=== PATIENT | male | born 1995 | race American Indian/Alaskan Native ===

== ENCOUNTER 2016-12-15 22:05 | Emergency (ER) | payer BC ==
[2016-12-15 22:45] LABS: Basophils % (Auto) 1.9 % (0.0-1.8); Eosinophils % (Auto) 3.8 % (0.0-4.3); Hematocrit 34.3 % (35.5-45.6); Hemoglobin 10.9 gm/dl (11.8-15.2); Mean Corpuscular HGB Conc 32 % (32-34); Mean Corpuscular Volume 79 fl (84-94); Platelet Count 377 K/mm3 (140-440); Red Blood Count 4.35 M/mm3 (3.65-5.03); Red Cell Distribution Width 15.1 % (13.2-15.2); White Blood Count 10.7 K/mm3 (4.5-11.0)
[2016-12-15 22:48] LABS: Mean Corpuscular Hemoglobin 25 pg (28-32)
[2016-12-15 23:06] LABS: Anion Gap 19 mmol/L; Blood Urea Nitrogen 9 mg/dL (9-20); Carbon Dioxide 25 mmol/L (22-30); Chloride 98.3 mmol/L (98-107); Glucose 124 mg/dL (75-100); Sodium 138 mmol/L (137-145)
[2016-12-16 06:43] LABS: Urine Drugs of Abuse Note Disclamer
--- NOTE | 2016-12-16 06:55 | Emergency Department Report ---
HPI - General Chief Complaint: Psych Time Seen by Provider: 12/16/16 06:14 - HPI HPI: This is a 21-year-old Afro-L[place] male who presents the emergency department from home via police department. The patient says that he got into a verbal altercation/argument with his parents and then called the police. He admitted to them and through triage that he sometimes will feel suicidal or homicidal, when he gets angry, which he was last night. He denies any diagnosed medical or psychiatric history and is not on any medications. He denies any auditory or visual hallucinations. He did not take anything for his symptoms prior to presentation. He has a tobacco smoker but denies any illicit drug use or any current alcohol use. The patient says that these symptoms have been going on for the past few months and that he is been having some depression over the fact that he does not get to see his daughter very often as he says "I do not make enough." ED Past Medical Hx - Past Medical History Previous Medical History?: Yes Additional medical history: ADHD - Surgical History Past Surgical History?: No - Social History Smoking Status: Current Every Day Smoker Substance Use Type: Alcohol, Cocaine, Marijuana, Other ED Review of Systems ROS: Stated complaint: MH EVAL Other details as noted in HPI Comment: All other systems reviewed and negative Constitutional: denies: chills, fever Eyes: denies: eye pain, eye discharge, vision change ENT: denies: ear pain, throat pain Respiratory: denies: cough, shortness of breath, wheezing Cardiovascular: denies: chest pain, palpitations Genitourinary: denies: urgency, dysuria Musculoskeletal: denies: back pain, joint swelling, arthralgia Skin: denies: rash, lesions Neurological: denies: headache, weakness, paresthesias Psychiatric: depression, homicidal thoughts, suicidal thoughts. denies: auditory hallucinations, visual hallucinations Physical Exam - Physical Exam Vital Signs: Vital Signs 12/15/16 12/15/16 12/16/16 22:21 22:27 02:03 Temperature 99 F 99.0 F 98.9 F Pulse Rate 90 90 74 Respiratory 20 20 18 Rate Blood Pressure 130/80 127/78 Blood Pressure 130/80 [Right] O2 Sat by Pulse 99 99 100 Oximetry 12/16/16 12/16/16 06:12 06:17 Temperature 98.3 F Pulse Rate 62 Respiratory 16 16 Rate Blood Pressure Blood Pressure 129/73 [Right] O2 Sat by Pulse 100 100 Oximetry Physical Exam: GENERAL: The patient is well-developed well-nourished. HEENT: Normocephalic. Atraumatic. Extraocular motions are intact. Patient has moist mucous membranes. Pupils equal reactive to light bilaterally. NECK: Supple. Trachea is midline. CHEST/LUNGS: Clear to auscultation. There is no respiratory distress noted. HEART/CARDIOVASCULAR: Regular. There is no tachycardia. There is no gallop rub or murmur. ABDOMEN: Abdomen is soft, nontender. Patient has normal bowel sounds. There is no abdominal distention. SKIN: There is no rash. There is no edema. There is no diaphoresis. NEURO: The patient is awake, alert, and oriented. The patient is cooperative. The patient has no focal neurologic deficits. The patient has normal speech. MUSCULOSKELETAL: There is no tenderness or deformity. There is no limitation range of motion. There is no evidence of acute injury. PSYCH: Flat affect. ED Course Vital Signs 12/15/16 12/15/16 12/16/16 22:21 22:27 02:03 Temperature 99 F 99.0 F 98.9 F Pulse Rate 90 90 74 Respiratory 20 20 18 Rate Blood Pressure 130/80 127/78 Blood Pressure 130/80 [Right] O2 Sat by Pulse 99 99 100 Oximetry 12/16/16 12/16/16 06:12 06:17 Temperature 98.3 F Pulse Rate 62 Respiratory 16 16 Rate Blood Pressure Blood Pressure 129/73 [Right] O2 Sat by Pulse 100 100 Oximetry ED Medical Decision Making - Lab Data Result diagrams: 12/15/16 22:34 12/15/16 22:34 - Medical Decision Making 21-year-old male presents via PD with complaint of intermittent suicidal and homicidal ideations that occurs when he is angry. He was angry this evening after a argument with his parents. He has some anger intermittently due to the fact that he does not get to see his daughter. For these reasons, since we cannot anticipate when the patient might become angry, the patient is been made a 1013. His labs are mostly unremarkable. Urine drug screen is only positive for marijuana. Negative blood alcohol level. No signs of infection. Vital signs stable throughout his ED course. Patient appears medically cleared for psychiatric placement. - Differential Diagnosis depression, bipolar disorder, mood disorder, schizophrenia Critical Care Time: No Critical care attestation.: If time is entered above; I have spent that time in minutes in the direct care of this critically ill patient, excluding procedure time. ED Disposition Clinical Impression: Suicidal ideations, Homicidal ideations Depression Qualifiers: Depression Type: unspecified Qualified Code(s): F32.9 - Major depressive disorder, single episode, unspecified Disposition: DC/TX PSY HOSP/PSY UNIT Is pt being admited?: No Condition: Stable Referrals: PRIMARY CARE, [Primary Care Provider] - 3-5 Days Time of Disposition: 07:27
[2016-12-16 07:18] LABS: Bilirubin,Urine NEG (Negative); Blood,Urine NEG (Negative); Ketones,Urine NEG (Negative); Leukocyte Esterase,Urine MOD (Negative); Mucus,Urine 1+ /HPF; Nitrite,Urine NEG (Negative); Protein,Urine <15 mg/dL mg/dL (Negative); Urobilinogen,Urine < 2.0 mg/dL (<2.0)
[2016-12-16 09:50] VITALS: BP 112/78
--- NOTE | 2016-12-16 11:00 | Consultation ---
History of Present Illness - Reason for Consult Consult date: 12/16/16 Reason for consult: Mental Health Evaluation Requesting physician: FE HAYES - Chief Complaint Chief complaint: "I need some help" - History of Present Psychiatric Illness This is a 21-year-old Afro-Jamaican male who presents the emergency department from home via police department. The patient says that he got into a verbal altercation/argument with his parents and then called the police. Today patient is calm and cooperative during assessment. He stated that he been struggling with depression symptoms (hopeless, poor appetite, and helplessness) for a couple months. He stated that when he gets upset, he feels like he is about to loose it "mentally." He stated that his sibling were arguing and he tried to break it up. He stated his stepdad intervened and started yelling at him. He stated that he felt angry and was about to loose control, so he called the police. He stated that these feelings that he have are "violent with suicidal thoughts" He stated if he would to kill himself he would "overdose on pills or drink alcohol to ." Patient stated that he have taken opiates and consume alcohol in the past to cope with his depression. He stated that he is currently having suicidal ideations and thoughts. Also, the patient is having child custody issues with the mother of his child. He denies HI's and AVH's, with erratic sleep. Patient stated that he used to be "ambitious" and had the "spark " to be successful in life, but no longer have that drive at this time. He denies alcohol consumption, but he did admit to using marijuana. Positive for marijuana. Medications and Allergies Allergies Allergy/AdvReac Type Severity Reaction Status Date / Time grapefruit Allergy Unknown Verified 12/15/16 22:27 Past psychiatric history - Past Medical History Past Medical History: No medical history Past Surgical History: No surgical history - past Psychiatric treatment and history psychiatric treatment history: Saw a psychiatrist as a child for possible ADHD. He think his mother has depression. - Social History Social history: lives with family ([employer] graduate, unemployed) Mental Status Exam - Vital signs Last Vital Signs Temp 98.7 F 12/16/16 09:49 Pulse 85 12/16/16 09:49 Resp 20 12/16/16 09:49 BP 112/78 12/16/16 09:49 Pulse Ox 99 12/16/16 09:49 - Exam Narrative exam: ROS (+) depression, (-) psychosis MSE: Appearance: calm, cooperative Behavior: poo eye contact Speech: regular rate and tone Mood: "feel down" Affect: flat Thought Process: linear Thought Content: denies HI's and AVH's Motor Activity: ambulatory Cognition: a/ox 3 Insight: fair Judgment: fair Results Result Diagrams: 12/15/16 22:34 12/15/16 22:34 Abnormal lab results 12/15/16 12/15/16 12/16/16 Range/Units 22:34 22:34 06:07 Hgb 10.9 L (11.8-15.2) gm/dl Hct 34.3 L (35.5-45.6) % MCV 79 L (84-94) fl MCH 25 L (28-32) pg Lymph % (Auto) 5.0 L (13.4-35.0) % [place] % (Auto) 10.1 H (0.0-7.3) % Baso % (Auto) 1.9 H (0.0-1.8) % Lymph # 0.5 L (1.2-5.4) K/mm3 [place] # 1.1 H (0.0-0.8) K/mm3 Baso # 0.2 H (0.0-0.1) K/mm3 Seg Neutrophils % 79.2 H (40.0-70.0) % Seg Neutrophils # 8.5 H (1.8-7.7) K/mm3 Glucose 124 H (75-100) mg/dL Urine WBC (Auto) 40.0 H (0.0-6.0) /HPF All other labs normal. Assessment and Plan Assessment and plan: Impression: MDD severe type/Cannabis Use DO. This is a 21-year-old Afro- [place] male who presents the emergency department from home via police department. The patient says that he got into a verbal altercation/argument with his parents and then called the police. Today patient is calm and cooperative during assessment. He stated that he been struggling with depression symptoms (hopeless, poor appetite, and helplessness) for months. He stated that when he gets upset, he feels like he is about to loose it "mentally. " He stated that his siblings were arguing and he tried to break it up. He stated that his stepdad intervened and started yelling at him. He stated that he felt angry and was about to loose control, so he called the police. Patient is willing to receive the necessary help for stabilization. Positive for marijuana. DD: R/O Bipolar, Adjustment DO Recommendation/Plan: Continue 1013 with placement to [facility].
== END 2016-12-16 18:29 ==
LOC: EEVIPCON 22:05 → ED 22:05
DX: F32.9 Major depressive disorder, single episode, unspecified (principal); R45.851 Suicidal ideations; R45.850 Homicidal ideations; F17.200 Nicotine dependence, unspecified, uncomplicated; F12.10 Cannabis abuse, uncomplicated; F14.10 Cocaine abuse, uncomplicated
CPT/HCPCS: 36415; 80048; 80307; 81001; 85025; 99285; G0480; 80320

== ENCOUNTER 2017-06-15 19:33 | Emergency (ER) | payer BC ==
[2017-06-15 22:55] LABS: Basophils % (Auto) 2.5 % (0.0-1.8); Hematocrit 42.1 % (35.5-45.6); Hemoglobin 13.7 gm/dl (11.8-15.2); Mean Corpuscular HGB Conc 33 % (32-34); Mean Corpuscular Hemoglobin 27 pg (28-32); Mean Corpuscular Volume 84 fl (84-94); Platelet Count 265 K/mm3 (140-440); Red Cell Distribution Width 14.2 % (13.2-15.2)
[2017-06-15 23:12] LABS: Alanine Aminotransferase 22 units/L (7-56); Albumin 4.1 g/dL (3.9-5); Albumin/Globulin Ratio 1.2 %; Alkaline Phosphatase 84 units/L (35-129); Anion Gap 18 mmol/L; BUN/Creatinine Ratio 18; Blood Urea Nitrogen 14 mg/dL (9-20); Calcium 9.4 mg/dL (8.4-10.2); Carbon Dioxide 25 mmol/L (22-30); Chloride 99.2 mmol/L (98-107); Glucose 86 mg/dL (75-100); Lipase 19 units/L (13-60); Potassium 4.1 mmol/L (3.6-5.0); Sodium 138 mmol/L (137-145); Total Protein 7.4 g/dL (6.3-8.2)
[2017-06-16 00:06] VITALS: BP 139/77
[2017-06-16 00:29] LABS: Bilirubin,Urine Negative (Negative); Blood,Urine Negative (Negative); Ketones,Urine Negative (Negative); Leukocyte Esterase,Urine Negative (Negative); Nitrite,Urine Negative (Negative); Protein,Urine <15 mg/dL mg/dL (Negative); Urobilinogen,Urine < 2.0 mg/dL (<2.0)
[2017-06-16 00:40] LABS: Mucus,Urine 1+ /HPF
[2017-06-16] MEDS ORDERED: BENTYL PO ONE (06:25)
[2017-06-16] MEDS ORDERED: PHENERGAN PO ONE (06:27)
--- NOTE | 2017-06-16 06:35 | Emergency Department Report ---
ED General Adult HPI - General Chief complaint: Abdominal Pain Stated complaint: ABD PAIN Time Seen by Provider: 06/16/17 06:24 Source: patient Mode of arrival: Ambulatory Limitations: No Limitations - History of Present Illness Initial comments: Patient is a 22-year-old male past medical history of abdominal pain who presents with lower abdominal pain and nausea. Patient states that symptoms have been going on for the last couple months. Patient states that he initially was seen at [facility] and diagnosed with irritable bowel syndrome he states that the bone pain as a 4 out of 10 located in the epigastric area and in the lower quadrant area cramping is intermittent nothing makes it better or worse. He's also had some nausea and vomiting with this abdominal pain has been nonbloody and nonbilious. Patient also states that he' s had some diarrhea but no blood in stool. Patient has no significant family medical history Severity scale (0 -10): 0 - Related Data Previous Rx's Medication Instructions Recorded Last Taken Type Promethazine [Phenergan TAB] 25 mg PO Q6HR PRN #30 tab 06/16/17 Unknown Rx Allergies Allergy/AdvReac Type Severity Reaction Status Date / Time grapefruit Allergy Swelling Verified 06/15/17 22:09 ED Review of Systems ROS: Stated complaint: ABD PAIN Other details as noted in HPI Constitutional: denies: chills, fever Eyes: denies: eye pain, eye discharge, vision change ENT: denies: ear pain, throat pain Respiratory: denies: cough, shortness of breath, wheezing Cardiovascular: denies: chest pain, palpitations Endocrine: no symptoms reported Gastrointestinal: abdominal pain, nausea. denies: diarrhea Genitourinary: denies: urgency, dysuria Musculoskeletal: denies: back pain, joint swelling, arthralgia Skin: denies: rash, lesions Neurological: denies: headache, weakness, paresthesias Psychiatric: denies: anxiety, depression Hematological/Lymphatic: denies: easy bleeding, easy bruising ED Past Medical Hx - Past Medical History Previous Medical History?: Yes Additional medical history: ADHD, anemia - Surgical History Past Surgical History?: No - Social History Smoking Status: Never Smoker - Medications Home Medications: Home Medications Medication Instructions Recorded Confirmed Last Taken Type Promethazine [Phenergan TAB] 25 mg PO Q6HR PRN #30 tab 06/16/17 Unknown Rx ED Physical Exam - General Limitations: No Limitations General appearance: alert, in no apparent distress - Head Head exam: Present: atraumatic, normocephalic - Eye Eye exam: Present: normal appearance - ENT ENT exam: Present: mucous membranes moist - Neck Neck exam: Present: normal inspection - Respiratory Respiratory exam: Present: normal lung sounds bilaterally. Absent: respiratory distress - Cardiovascular Cardiovascular Exam: Present: regular rate, normal rhythm. Absent: systolic murmur, diastolic murmur, rubs, gallop - GI/Abdominal GI/Abdominal exam: Present: soft, normal bowel sounds - Rectal Rectal exam: Present: deferred - Extremities Exam Extremities exam: Present: normal inspection - Back Exam Back exam: Present: normal inspection - Neurological Exam Neurological exam: Present: alert, oriented X3 - Psychiatric Psychiatric exam: Present: normal affect, normal mood - Skin Skin exam: Present: warm, dry, intact, normal color. Absent: rash ED Course Vital Signs 06/15/17 06/16/17 06/16/17 22:06 00:05 06:18 Temperature 99.5 F 99.8 F H Pulse Rate 20 L 71 Respiratory 18 18 Rate Blood Pressure 137/72 139/77 O2 Sat by Pulse 99 100 97 Oximetry ED Medical Decision Making - Lab Data Result diagrams: 06/15/17 22:16 06/15/17 22:16 Labs 06/15/17 06/15/17 06/15/17 22:16 22:16 23:23 WBC 5.0 RBC 5.00 Hgb 13.7 Hct 42.1 MCV 84 MCH 27 L MCHC 33 RDW 14.2 Plt Count 265 Lymph % (Auto) 22.4 [place] % (Auto) 11.5 H Eos % (Auto) 8.0 H Baso % (Auto) 2.5 H Lymph # 1.1 L [place] # 0.6 Eos # 0.4 Baso # 0.1 Seg Neutrophils % 55.6 Seg Neutrophils # 2.8 Sodium 138 Potassium 4.1 Chloride 99.2 Carbon Dioxide 25 Anion Gap 18 BUN 14 Creatinine 0.8 Estimated GFR > 60 BUN/Creatinine Ratio 18 Glucose 86 Calcium 9.4 Total Bilirubin 0.80 AST 16 ALT 22 Alkaline Phosphatase 84 Total Protein 7.4 Albumin 4.1 Albumin/Globulin Ratio 1.2 Lipase 19 Urine Color Yellow Urine Turbidity Hazy Urine pH 5.0 Ur Specific [place] 1.035 H Urine Protein <15 mg/dl Urine Glucose (UA) Negative Urine Ketones Negative Urine Blood Negative Urine Nitrite Negative Urine Bilirubin Negative Urine Urobilinogen < 2.0 Ur Leukocyte Esterase Negative Urine WBC (Auto) 8.0 H Urine RBC (Auto) 4.0 Calcium Oxalate Crystal 1+ Urine Mucus 1+ - Medical Decision Making Chief medical diagnosis: Irritable bowel syndrome Differential diagnosis: Gastritis, peptic ulcer, partial abnormality CBC, CMP, oral Bentyl, oral phenegran, and by mouth trial. Patient's laboratory findings are unremarkable patient's is feeling better after oral medication I'll send patient home will follow-up with his primary care provider patient agrees with plan. Additional verbal discharge instructions were given. Patient was sent home with [facility] Critical care attestation.: If time is entered above; I have spent that time in minutes in the direct care of this critically ill patient, excluding procedure time. ED Disposition Clinical Impression: Abdominal pain in male Nausea and vomiting Qualifiers: Vomiting type: unspecified Vomiting Intractability: unspecified Qualified Code( s): R11.2 - Nausea with vomiting, unspecified Disposition: DC-01 TO HOME OR SELFCARE Is pt being admited?: No Does the pt Need Aspirin: No Condition: Stable Instructions: Abdominal Pain (ED) Prescriptions: Promethazine [Phenergan TAB] 25 mg PO Q6HR PRN #30 tab PRN Reason: Nausea Referrals: GABRIELLE RODRIGES MD [Staff Physician] - 3-5 Days Forms: Work/School Release Form(ED)
== END 2017-06-16 07:51 | disposition home or self-care (01) ==
LOC: ED 19:33
DX: R10.9 Unspecified abdominal pain (principal); R11.2 Nausea with vomiting, unspecified
CPT/HCPCS: 36415; 80053; 81001; 83690; 85025; Q0169